=== PATIENT | male | born 1980 | race Caucasian/White ===

== ENCOUNTER → 2016-12-22 | Outpatient (CLI) | payer BC ==
[~2016-12-22] MED LIST: GADAVIST IV PRN
--- NOTE | 2016-12-22 08:30 | DIAGNOSTIC IMAGING REPORT ---
BRAIN COMBO FOR PITUITARY CLINICAL HISTORY: 36 years-old Male presenting with enlarged pituitary gland, pituitary adenoma. TECHNIQUE: Multisequence, multiplanar MR imaging of the brain was performed before and after the administration of intravenous contrast. IV contrast: 8.5 mL Gadavist. COMPARISON: 11/06/2015. FINDINGS: Upper convexity of the pituitary gland, abnormal in a male patient of this age. This appearance is slightly more prominent on the current exam. The pituitary measures 9 mm in maximal craniocaudal dimension, previously 7 mm. No cystic change within the pituitary. Small focus of relative early hypoenhancement measuring 4 mm along the right paramedian aspect of the pituitary gland, which is relatively poorly defined among the overall heterogeneously enhancing gland. This appearance is more conspicuous than on the prior exam. Ventricles and sulci normal in size. Brain parenchyma normal in appearance with preserved dubon-white differentiation. No mass effect or midline shift. No hemorrhage or acute territorial infarct. No extra-axial fluid collection. T2 skull base flow voids preserved. No other abnormal parenchymal enhancement. Bone marrow signal intensity within the calvarium within normal limits. IMPRESSION: 1. Pituitary enlargement on expected for a male patient of this age. Relative hypoenhancing region in the right perimedian aspect of the pituitary gland, which is relatively poorly defined although suspicious for a microadenoma. Overall the pituitary gland is slightly enlarged from prior exam. 2. No acute intracranial abnormality. No other abnormal parenchymal enhancement. Electronically signed by: Janusz Wick M.D. 12/22/2016 8:29 AM Dictated Date/Time: 12/22/2016 8:23 AM
== END | disposition home or self-care (01) ==
PROVIDERS: ATTEND Psychiatry & Neurology Neurology
DX: D35.2 Benign neoplasm of pituitary gland (principal); E23.6 Other disorders of pituitary gland